=== PATIENT | male | born 1970 | race Caucasian/White ===

== ENCOUNTER 2021-02-13 14:50 | Inpatient (IN) ==
[2021-02-13 18:00] LABS: ABS Basophils 0.1 10^3/ul (0-0.2); ABS Eosinophils 0.1 10^3/ul (0-0.6); ABS Lymphocytes 3.6 10^3/ul (1.0-4.8); ABS Monocytes 0.6 10^3/ul (0-0.8); ABS Neutrophils 13.8 10^3/ul (1.5-7.7); Eosinophil % 0.3 %; Hematocrit 41 % (42-52); Hemoglobin 13.8 g/dL (14.0-18.0); Lymphocyte % 19.7 %; Mean Corpuscular HGB Conc 34 g/dL (31-36); Mean Corpuscular Hemoglobin 32 pg (27-31); Mean Corpuscular Volume 94 fL (80-94); Mean Platelet Volume 6.7 fL (7.4-10.4); Nucleated Red Blood Cells % 0.2; Platelet Count 470 10^3/uL (150-450); Red Blood Count 4.38 10^6 /uL (4.18-5.48); Red Cell Distribution Width 16 % (10-15); White Blood Count 18.1 10^3/uL (3.5-10.8)
[2021-02-13 18:20] LABS: Albumin 1.8 g/dL (3.2-5.2); Albumin/Globulin Ratio 0.7 (1-3); Calcium 7.4 mg/dL (8.6-10.3); Globulin 2.7 g/dL (2-4); Potassium 4.4 mmol/L (3.5-5.0); Total Bilirubin 0.4 mg/dL (0.2-1.0); Total Protein 4.5 g/dL (6.4-8.9)
[2021-02-13] MEDS ORDERED: Piperacillin/Tazobac ADVAN 3.375 GM in NS 0.9% 100 ml BAG 100 ML IV ONE (21:22)
[2021-02-13] MEDS ORDERED: NS 0.9% 1000 ml BAG 1,000 ML IV ONE (21:25)
[2021-02-13] MEDS ORDERED: Iohexol 300 (CONTRAST) 10 ML SDV IV ONE (21:36)
[2021-02-13] MEDS ORDERED: Thiamine IV 100 MG, Folic Acid IV 1 MG, Multiple Vitamin IV ADULT 10 ML in D5NS 0.9% 10... IVPB ONE (22:00)
[2021-02-14] MEDS ORDERED: Thiamine 100 MG/ML 2 ml VIAL (200 mg) IM ONE (00:17)
[2021-02-14 01:04] LABS: Urine Appearance Turbid; Urine Bilirubin Negative (Negative); Urine Blood 2+ (Negative); Urine Color Amber; Urine Glucose Negative (Negative); Urine Ketones Negative (Negative); Urine Nitrite Negative (Negative); Urine Protein 2+(100 mg/dL) (Negative); Urine Urobilinogen Negative (Negative)
[2021-02-14 01:20] LABS: Urine Bacteria Absent (Absent); Urine Red Blood Cell 3+(>10/hpf) (Absent); Urine White Blood Cell 1+(6-10/hpf) (Absent)
[2021-02-14 02:00] LABS: Magnesium 1.9 mg/dL (1.9-2.7)
[2021-02-14 02:33] LABS: Rapid COVID-19 Molecular Undetected (Undetected)
[2021-02-14 02:43] LABS: C Reactive Protein 14.73 mg/L (<8.01)
[2021-02-14] MEDS: HYDROcodone/ACETAMIN 5/325 mg TAB PO PRN ×4 (05:43→21:39)
[2021-02-14] MEDS ORDERED: Albuterol HFA INHALER 8 gm MDI INH PRN (06:34)
[2021-02-14] MEDS: OLANzapine 5 mg TAB*ODT PO SCH ×2 (13:26→21:39)
[2021-02-14] MEDS ORDERED: Albumin Human 25% 25 GM/100 ML BTL IV ONE (14:00)
[2021-02-14 16:28] LABS: Phosphorus 4.2 mg/dL (2.5-5.0)
[2021-02-14 17:08] LABS: Hepatitis B Surface Antigen Nonreactive (Nonreactive)
[2021-02-14 17:13] LABS: Hepatitis A Ab IgM Negative (Negative); Hepatitis B Core IgM Nonreactive (Nonreactive)
[2021-02-14 17:25] LABS: Hepatitis C Antibody Negative (Negative)
[2021-02-14] MEDS: cefTRIAXone 1 gm/50 mL NS BAG 1 GM/50 ML BAG IVPB SCH (19:41)
[2021-02-15 06:58] LABS: Blood Urea Nitrogen 13 mg/dL (6-24); CO2 Carbon Dioxide 28 mmol/L (22-32); Calcium 6.8 mg/dL (8.6-10.3); Chloride 111 mmol/L (101-111); Cholesterol 27 mg/dL; Glucose 68 mg/dL (70-100); HDL Cholesterol 17.3 mg/dL; LDL Cholesterol 4 mg/dL; Magnesium 1.8 mg/dL (1.9-2.7); Potassium 3.9 mmol/L (3.5-5.0); Sodium 139 mmol/L (135-145); Triglycerides 28 mg/dL
[2021-02-15 07:06] LABS: ABS Basophils 0.1 10^3/ul (0-0.2); ABS Eosinophils 0.2 10^3/ul (0-0.6); ABS Lymphocytes 3.7 10^3/ul (1.0-4.8); ABS Monocytes 0.6 10^3/ul (0-0.8); ABS Neutrophils 5.8 10^3/ul (1.5-7.7); Hematocrit 31 % (42-52); Hemoglobin 10.2 g/dL (14.0-18.0); Lymphocyte % 35.3 %; Mean Corpuscular HGB Conc 33 g/dL (31-36); Mean Corpuscular Hemoglobin 31 pg (27-31); Mean Corpuscular Volume 94 fL (80-94); Platelet Count 356 10^3/uL (150-450); Red Blood Count 3.26 10^6 /uL (4.18-5.48); Red Cell Distribution Width 15 % (10-15); White Blood Count 10.5 10^3/uL (3.5-10.8)
[2021-02-15 08:39] LABS: ALT 18 U/L (7-52); AST 17 U/L (13-39); Albumin 1.7 g/dL (3.2-5.2); Albumin/Globulin Ratio 0.9 (1-3); Alkaline Phosphatase 101 U/L (35-149); Globulin 1.8 g/dL (2-4); Indirect Bilirubin 0.2 mg/dL (0.3-1.0); Total Protein 3.5 g/dL (6.4-8.9)
[2021-02-15] MEDS ORDERED: Albumin Human 25% 25 GM/100 ML BTL IV ONE (10:00)
[2021-02-15 10:42] LABS: % Iron Saturation 33 % (15-55); Iron 35 ug/dL (50-212); Total Iron Binding Capacity 105 mcg/dL (250-450); Transferrin < 75 mg/dL (203-362); Unsaturated Iron Binding < 90 ug/dL
[2021-02-15] MEDS: OLANzapine 5 mg TAB*ODT PO SCH ×2 (11:05→21:03)
[2021-02-15 11:07] LABS: Folate 11.24 ng/mL (5.90-24.80)
[2021-02-15 11:09] LABS: Vitamin B12 1365 pg/mL (180-914)
[2021-02-15 11:20] LABS: Activated Partial Thrombo Time 34.7 seconds (26.0-38.0); INR 1.62 (0.86-1.15)
[2021-02-15] MEDS: cefTRIAXone 1 gm/50 mL NS BAG 1 GM/50 ML BAG IVPB SCH (11:47)
[2021-02-15] MEDS ORDERED: Furosemide 40 mg/4 ml IV VIAL IV STA (13:14)
[2021-02-15] MEDS ORDERED: Phytonadione Oral Solution 5 MG/25 ML UDC PO ONE (16:37)
[2021-02-15] MEDS ORDERED: PHYTONADIONE PO ONE (16:37)
[2021-02-15] MEDS ORDERED: Iron Sucrose 200 MG in NS 0.9% 100 ml BAG 100 ML IVPB SCH (17:00)
[2021-02-15 17:16] LABS: Ferritin 552.3 ng/mL (24-336)
[2021-02-15] MEDS: HYDROcodone/ACETAMIN 5/325 mg TAB PO PRN (17:30)
[2021-02-15] MEDS ORDERED: Furosemide 40 mg/4 ml IV VIAL IV ONE (17:30)
[2021-02-16] MEDS: HYDROcodone/ACETAMIN 5/325 mg TAB PO PRN (08:45)
[2021-02-16] MEDS: cefTRIAXone 1 gm/50 mL NS BAG 1 GM/50 ML BAG IVPB SCH (08:46)
[2021-02-16] MEDS: OLANzapine 5 mg TAB*ODT PO SCH ×2 (08:46→21:28)
[2021-02-16 10:59] LABS: Hematocrit 38 % (42-52); Hemoglobin 12.6 g/dL (14.0-18.0); Mean Corpuscular HGB Conc 33 g/dL (31-36); Mean Corpuscular Hemoglobin 31 pg (27-31); Mean Corpuscular Volume 94 fL (80-94); Mean Platelet Volume 6.7 fL (7.4-10.4); Platelet Count 441 10^3/uL (150-450); Red Blood Count 4.01 10^6 /uL (4.18-5.48); Red Cell Distribution Width 15 % (10-15); White Blood Count 12.6 10^3/uL (3.5-10.8)
[2021-02-16 11:12] LABS: INR 1.65 (0.86-1.15)
[2021-02-16 11:16] LABS: Calcium 7.2 mg/dL (8.6-10.3); Magnesium 1.8 mg/dL (1.9-2.7)
[2021-02-16 21:53] LABS: Urine Creatinine Concentration 55.61 mg/dL
[2021-02-17 06:54] LABS: ABS Basophils 0.1 10^3/ul (0-0.2); ABS Eosinophils 0.2 10^3/ul (0-0.6); ABS Lymphocytes 3.6 10^3/ul (1.0-4.8); ABS Monocytes 0.6 10^3/ul (0-0.8); ABS Neutrophils 6.4 10^3/ul (1.5-7.7); Eosinophil % 1.8 %; Hematocrit 33 % (42-52); Lymphocyte % 33.2 %; Mean Corpuscular HGB Conc 34 g/dL (31-36); Mean Corpuscular Hemoglobin 32 pg (27-31); Mean Corpuscular Volume 94 fL (80-94); Platelet Count 343 10^3/uL (150-450); Red Blood Count 3.48 10^6 /uL (4.18-5.48); Red Cell Distribution Width 15 % (10-15); White Blood Count 10.9 10^3/uL (3.5-10.8)
[2021-02-17 07:12] LABS: Albumin 1.7 g/dL (3.2-5.2); Albumin/Globulin Ratio 0.9 (1-3); Globulin 1.8 g/dL (2-4); Magnesium 1.7 mg/dL (1.9-2.7); Potassium 3.8 mmol/L (3.5-5.0); Total Bilirubin 0.3 mg/dL (0.2-1.0); Total Protein 3.5 g/dL (6.4-8.9)
[2021-02-17] MEDS: cefTRIAXone 1 gm/50 mL NS BAG 1 GM/50 ML BAG IVPB SCH (09:20)
[2021-02-17] MEDS: OLANzapine 5 mg TAB*ODT PO SCH ×2 (09:34→19:46)
[2021-02-17 13:38] LABS: Chlamydia trachomatis NAA Negative (Negative); Neisseria gonorrhoeae (GC) NAA Negative (Negative)
[2021-02-17] MEDS ORDERED: Magnesium Sulfate 2 gm BAG 2 GM/50 ML BAG IVPB ONE (17:45)
[2021-02-17] MEDS ORDERED: Potassium Chlor 20 meq TAB.ER PO ONE (17:46)
[2021-02-18] MEDS: cefTRIAXone 1 gm/50 mL NS BAG 1 GM/50 ML BAG IVPB SCH (08:15)
[2021-02-18] MEDS: OLANzapine 5 mg TAB*ODT PO SCH ×2 (08:16→20:29)
[2021-02-18 16:03] LABS: Hematocrit 38 % (42-52); Hemoglobin 12.7 g/dL (14.0-18.0); Mean Corpuscular HGB Conc 33 g/dL (31-36); Mean Corpuscular Hemoglobin 31 pg (27-31); Mean Corpuscular Volume 95 fL (80-94); Mean Platelet Volume 6.8 fL (7.4-10.4); Platelet Count 416 10^3/uL (150-450); Red Blood Count 4.05 10^6 /uL (4.18-5.48); Red Cell Distribution Width 15 % (10-15); White Blood Count 12.2 10^3/uL (3.5-10.8)
[2021-02-18 16:14] LABS: Calcium 7.2 mg/dL (8.6-10.3); Magnesium 1.9 mg/dL (1.9-2.7); Potassium 4.5 mmol/L (3.5-5.0)
[2021-02-18 16:28] LABS: Activated Partial Thrombo Time 38.3 seconds (26.0-38.0); INR 1.88 (0.86-1.15)
[2021-02-18 16:33] LABS: Urine Appearance Cloudy; Urine Color Red; Urine Specific Gravity 1.014 (1.002-1.030)
[2021-02-18 16:46] LABS: Urine Bacteria Absent (Absent); Urine Red Blood Cell 3+(>10/hpf) (Absent); Urine White Blood Cell 3+(>20/hpf) (Absent); Urine Yeast Present (Absent)
[2021-02-18] MEDS: HYDROcodone/ACETAMIN 5/325 mg TAB PO PRN ×2 (17:06→21:18)
[2021-02-18 19:44] LABS: Tissue Transglutaminase IgA Ab <1.2 U/mL
[2021-02-18 20:57] LABS: Immunoglobulin A 328 mg/dL (61 - 356)
[2021-02-18 23:10] LABS: Hematocrit 33 % (42-52); Hemoglobin 11.2 g/dL (14.0-18.0)
[2021-02-19 05:54] LABS: ABS Basophils 0.1 10^3/ul (0-0.2); ABS Eosinophils 0.2 10^3/ul (0-0.6); ABS Lymphocytes 4.2 10^3/ul (1.0-4.8); ABS Monocytes 0.7 10^3/ul (0-0.8); Eosinophil % 2.3 %; Hematocrit 32 % (42-52); Hemoglobin 10.9 g/dL (14.0-18.0); Lymphocyte % 40.6 %; Mean Corpuscular HGB Conc 34 g/dL (31-36); Mean Corpuscular Hemoglobin 32 pg (27-31); Mean Corpuscular Volume 94 fL (80-94); Mean Platelet Volume 6.9 fL (7.4-10.4); Nucleated Red Blood Cells % 0.1; Platelet Count 342 10^3/uL (150-450); Red Blood Count 3.46 10^6 /uL (4.18-5.48); Red Cell Distribution Width 15 % (10-15); White Blood Count 10.3 10^3/uL (3.5-10.8)
[2021-02-19 06:12] LABS: Albumin 1.7 g/dL (3.2-5.2); Direct Bilirubin 0.1 mg/dL (0.03-0.18); Globulin 1.7 g/dL (2-4); Indirect Bilirubin 0.1 mg/dL (0.3-1.0); Magnesium 1.7 mg/dL (1.9-2.7); Total Bilirubin 0.2 mg/dL (0.2-1.0); Total Protein 3.4 g/dL (6.4-8.9)
[2021-02-19] MEDS: OLANzapine 5 mg TAB*ODT PO SCH (10:34)
[2021-02-19] MEDS: cefTRIAXone 1 gm/50 mL NS BAG 1 GM/50 ML BAG IVPB SCH (10:34)
[2021-02-19] MEDS ORDERED: Collagenase 250 units/gm OINT 1 tube TOPICAL SCH (15:00)
[2021-02-19 15:19] VITALS: BP 100/70
== END 2021-02-19 19:20 | disposition home or self-care (01) | DRG 728 ==
LOC: ED 14:50 → SUATTDRO 02-14 00:48 → MEDTELE 02-14 00:48
PROVIDERS: ADMIT Internal Medicine; ATTEND Internal Medicine

== ENCOUNTER 2021-02-22 17:21 | Inpatient (IN) ==
[2021-02-22] MEDS ORDERED: NS 0.9% 1000 ml BAG 1,000 ML IV ONE (18:27)
[2021-02-22 20:18] LABS: ABS Basophils 0.2 10^3/ul (0-0.2); ABS Eosinophils 0.3 10^3/ul (0-0.6); ABS Lymphocytes 4.6 10^3/ul (1.0-4.8); ABS Monocytes 0.8 10^3/ul (0-0.8); Eosinophil % 1.9 %; Hematocrit 34 % (42-52); Hemoglobin 11.2 g/dL (14.0-18.0); Lymphocyte % 33.1 %; Mean Corpuscular HGB Conc 33 g/dL (31-36); Mean Corpuscular Hemoglobin 31 pg (27-31); Mean Corpuscular Volume 94 fL (80-94); Mean Platelet Volume 7.1 fL (7.4-10.4); Platelet Count 377 10^3/uL (150-450); Red Blood Count 3.58 10^6 /uL (4.18-5.48); Red Cell Distribution Width 16 % (10-15); White Blood Count 13.8 10^3/uL (3.5-10.8)
[2021-02-22 20:37] LABS: ALT 54 U/L (7-52); Albumin 1.8 g/dL (3.2-5.2); Albumin/Globulin Ratio 0.9 (1-3); Alkaline Phosphatase 115 U/L (35-149); Blood Urea Nitrogen 9 mg/dL (6-24); CO2 Carbon Dioxide 32 mmol/L (22-32); Chloride 108 mmol/L (101-111); Globulin 2.1 g/dL (2-4); Glucose 77 mg/dL (70-100); Magnesium 1.7 mg/dL (1.9-2.7); Sodium 139 mmol/L (135-145); Total Protein 3.9 g/dL (6.4-8.9)
[2021-02-22 20:38] LABS: Troponin I 0.01 ng/mL (<0.03)
[2021-02-22 21:07] LABS: TSH Ultra Thyroid Stim Horm 4.08 mcIU/mL (0.34-5.60)
[2021-02-22 21:08] LABS: Urine Appearance Turbid; Urine Bacteria Absent (Absent); Urine Bilirubin Negative (Negative); Urine Blood 3+ (Negative); Urine Glucose Negative (Negative); Urine Ketones Negative (Negative); Urine Nitrite Negative (Negative); Urine Protein 2+(100 mg/dL) (Negative); Urine Red Blood Cell 3+(>10/hpf) (Absent); Urine Specific Gravity 1.018 (1.002-1.030); Urine Urobilinogen Negative (Negative); Urine White Blood Cell 3+(>20/hpf) (Absent)
[2021-02-22 21:10] LABS: Urine Color Red
[2021-02-22] MEDS ORDERED: Iohexol 350 (CONTRAST) 500 ML MDV IV ONE (21:33)
[2021-02-22] MEDS ORDERED: Dexamethasone IV 4 MG/ML VIAL 1 ml VIAL IV SLOW PU ONE (22:17)
[2021-02-23] MEDS ORDERED: Magnesium Sulfate IV 3 GM in NS 0.9% 100 ml BAG 100 ML IVPB ONE (01:07)
[2021-02-23] MEDS ORDERED: Azithromycin 500 mg/250 ml NS 500 MG/250 ML BAG IVPB ONE (01:15)
[2021-02-23] MEDS ORDERED: cefTRIAXone 1 GM/50 ML PREMIX.BAG IV ONE (02:00)
[2021-02-23 02:44] LABS: Rapid COVID-19 Molecular Undetected (Undetected)
[2021-02-23] MEDS ORDERED: NS 0.9% 100 ml BAG 100 ML ONE (03:02)
[2021-02-23 03:15] LABS: Potassium Redraw 3.7 mmol/L (3.5-5.0)
[2021-02-23] MEDS ORDERED: Albumin Human 5% 12.5 GM/250 ML BTL IV ONE (08:00)
[2021-02-23] MEDS ORDERED: Furosemide 40 mg/4 ml IV VIAL IV SLOW PU ONE (08:30)
[2021-02-23 08:51] LABS: Albumin < 1.7 g/dL (3.2-5.2); CO2 Carbon Dioxide 24 mmol/L (22-32); Calcium 6.9 mg/dL (8.6-10.3); Sodium 140 mmol/L (135-145)
[2021-02-23 08:53] LABS: ABS Basophils 0.3 10^3/ul (0-0.2); ABS Eosinophils 0.4 10^3/ul (0-0.6); ABS Lymphocytes 3.8 10^3/ul (1.0-4.8); ABS Monocytes 0.8 10^3/ul (0-0.8); ABS Neutrophils 6.7 10^3/ul (1.5-7.7); Hematocrit 34 % (42-52); Hemoglobin 11.2 g/dL (14.0-18.0); Lymphocyte % 31.8 %; Mean Corpuscular HGB Conc 33 g/dL (31-36); Mean Corpuscular Hemoglobin 31 pg (27-31); Mean Corpuscular Volume 96 fL (80-94); Mean Platelet Volume 7.1 fL (7.4-10.4); Platelet Count 353 10^3/uL (150-450); Red Blood Count 3.59 10^6 /uL (4.18-5.48); Red Cell Distribution Width 16 % (10-15); White Blood Count 11.9 10^3/uL (3.5-10.8)
[2021-02-23 08:57] LABS: ALT 47 U/L (7-52); Albumin/Globulin Ratio 0.9 (1-3); Alkaline Phosphatase 116 U/L (35-149); Blood Urea Nitrogen 9 mg/dL (6-24); C Reactive Protein 6.36 mg/L (<8.01); Globulin 1.8 g/dL (2-4); Glucose 73 mg/dL (70-100); Total Protein 3.5 g/dL (6.4-8.9)
[2021-02-23] MEDS: Collagenase 250 units/gm OINT 1 tube TOPICAL SCH (09:05)
[2021-02-23] MEDS: OLANzapine 5 mg TAB*ODT PO SCH ×2 (09:05→21:22)
[2021-02-23 10:34] LABS: AST 45 U/L (13-39); Indirect Bilirubin 0.2 mg/dL (0.3-1.0)
[2021-02-23 10:35] LABS: Anion Gap 4 mmol/L (2-11); Chloride 112 mmol/L (101-111)
[2021-02-23] MEDS: Furosemide 40 mg/4 ml IV VIAL IV SLOW PU SCH ×2 (12:40→21:22)
[2021-02-23] MEDS: Albumin Human 25% 25 GM/100 ML BTL IV SCH ×2 (12:40→21:24)
[2021-02-24] MEDS ORDERED: cefTRIAXone 1 gm/50 mL NS BAG 1 GM/50 ML BAG IVPB SCH (06:30)
[2021-02-24 06:37] LABS: Hematocrit 29 % (42-52); Hemoglobin 9.5 g/dL (14.0-18.0); Mean Corpuscular HGB Conc 33 g/dL (31-36); Mean Corpuscular Hemoglobin 31 pg (27-31); Mean Corpuscular Volume 94 fL (80-94); Platelet Count 318 10^3/uL (150-450); Red Blood Count 3.03 10^6 /uL (4.18-5.48); Red Cell Distribution Width 16 % (10-15); White Blood Count 8.7 10^3/uL (3.5-10.8)
[2021-02-24 06:52] LABS: Albumin 2.2 g/dL (3.2-5.2); Albumin/Globulin Ratio 1.5 (1-3); Calcium 7.4 mg/dL (8.6-10.3); Direct Bilirubin 0.1 mg/dL (0.03-0.18); Globulin 1.5 g/dL (2-4); Indirect Bilirubin 0.5 mg/dL (0.3-1.0); Magnesium 1.8 mg/dL (1.9-2.7); Phosphorus 3.5 mg/dL (2.5-5.0); Potassium 3.3 mmol/L (3.5-5.0); Total Bilirubin 0.6 mg/dL (0.2-1.0); Total Protein 3.7 g/dL (6.4-8.9)
[2021-02-24] MEDS ORDERED: Magnesium Sulfate 2 gm BAG 2 GM/50 ML BAG IVPB ONE (07:04)
[2021-02-24] MEDS: Furosemide 40 mg/4 ml IV VIAL IV SLOW PU SCH (08:50)
[2021-02-24] MEDS: HYDROcodone/ACETAMIN 5/325 mg TAB PO PRN ×2 (08:56→21:43)
[2021-02-24] MEDS: Potassium Chlor 20 meq TAB.ER PO SCH ×2 (08:57→21:42)
[2021-02-24] MEDS: OLANzapine 5 mg TAB*ODT PO SCH ×2 (08:57→21:43)
[2021-02-24] MEDS ORDERED: Pneumococcal Vac 23-Polyvalent IM ONE (09:00)
[2021-02-24] MEDS ORDERED: Flu vaccine *QUAD* 2021-22* 0.5 ML SYRINGE IM ONE (09:00)
[2021-02-24] MEDS: Collagenase 250 units/gm OINT 1 tube TOPICAL SCH (09:13)
[2021-02-24] MEDS: Albumin Human 25% 25 GM/100 ML BTL IV SCH ×2 (10:33→21:41)
[2021-02-25] MEDS: Furosemide 40 mg/4 ml IV VIAL IV SLOW PU SCH ×2 (00:24→11:18)
[2021-02-25 06:34] LABS: Hematocrit 31 % (42-52); Hemoglobin 10.1 g/dL (14.0-18.0); Mean Corpuscular HGB Conc 33 g/dL (31-36); Mean Corpuscular Hemoglobin 31 pg (27-31); Mean Corpuscular Volume 94 fL (80-94); Mean Platelet Volume 7.3 fL (7.4-10.4); Platelet Count 329 10^3/uL (150-450); Red Blood Count 3.26 10^6 /uL (4.18-5.48); Red Cell Distribution Width 16 % (10-15); White Blood Count 9.6 10^3/uL (3.5-10.8)
[2021-02-25 06:59] LABS: Albumin 2.7 g/dL (3.2-5.2); Albumin/Globulin Ratio 1.7 (1-3); Calcium 7.9 mg/dL (8.6-10.3); Globulin 1.6 g/dL (2-4); Magnesium 1.9 mg/dL (1.9-2.7); Total Bilirubin 0.4 mg/dL (0.2-1.0); Total Protein 4.3 g/dL (6.4-8.9)
[2021-02-25 07:48] LABS: Potassium 4.1 mmol/L (3.5-5.0)
[2021-02-25] MEDS: HYDROcodone/ACETAMIN 5/325 mg TAB PO PRN (08:54)
[2021-02-25] MEDS: OLANzapine 5 mg TAB*ODT PO SCH (08:55)
[2021-02-25] MEDS: Collagenase 250 units/gm OINT 1 tube TOPICAL SCH (08:55)
[2021-02-26] MEDS: HYDROcodone/ACETAMIN 5/325 mg TAB PO PRN ×2 (03:33→11:59)
[2021-02-26] MEDS: OLANzapine 5 mg TAB*ODT PO SCH ×2 (03:33→11:40)
[2021-02-26 06:33] LABS: Albumin 2.4 g/dL (3.2-5.2); Albumin/Globulin Ratio 1.4 (1-3); Calcium 7.6 mg/dL (8.6-10.3); Direct Bilirubin 0.1 mg/dL (0.03-0.18); Globulin 1.7 g/dL (2-4); Indirect Bilirubin 0.3 mg/dL (0.3-1.0); Magnesium 1.7 mg/dL (1.9-2.7); Potassium 4.1 mmol/L (3.5-5.0); Total Bilirubin 0.4 mg/dL (0.2-1.0); Total Protein 4.1 g/dL (6.4-8.9); eGFR CKD-EPI 134.4 (>60)
[2021-02-26 06:46] LABS: Hematocrit 34 % (42-52); Hemoglobin 11.1 g/dL (14.0-18.0); Mean Corpuscular HGB Conc 33 g/dL (31-36); Mean Corpuscular Hemoglobin 31 pg (27-31); Mean Corpuscular Volume 96 fL (80-94); Mean Platelet Volume 7.2 fL (7.4-10.4); Platelet Count 304 10^3/uL (150-450); Red Blood Count 3.57 10^6 /uL (4.18-5.48); Red Cell Distribution Width 16 % (10-15); White Blood Count 10.3 10^3/uL (3.5-10.8)
[2021-02-26] MEDS: Magnesium Sulfate 2 gm BAG 2 GM/50 ML BAG IVPB ONE ×2 (11:58→12:04)
[2021-02-26] MEDS ORDERED: Magnesium Sulfate 2 gm BAG 2 GM/50 ML BAG IVPB ONE (12:00)
[2021-02-26] MEDS: Collagenase 250 units/gm OINT 1 tube TOPICAL SCH (12:02)
[2021-02-26 16:36] VITALS: BP 120/70
== END 2021-02-26 17:22 | disposition home or self-care (01) | DRG 312 ==
LOC: ED 17:21 → EDHOLD 17:21 → SUATTDRO 02-23 01:20 → MEDTELE 02-23 04:46
PROVIDERS: ADMIT Student in an Organized Health Care Education/Training Program; ATTEND Internal Medicine